=== PATIENT | male | born 1945 | race Caucasian/White ===

== ENCOUNTER → 2017-08-03 | Outpatient (CLI) | payer MEDICARE | END | disposition home or self-care (01) | LOC: LABWHC1 09:33 | PROVIDERS: ATTEND Family Medicine | DX: Z12.11 Encounter for screening for malignant neoplasm of colon (principal) | CPT/HCPCS: 82272 ==

== ENCOUNTER → 2019-05-15 | Outpatient (CLI) | payer MEDICARE ==
[2019-05-15 15:45] LABS: INR 2.5 (<1.2); Prothrombin Time 24.6 sec (9.0-12.0)
== END | disposition home or self-care (01) ==
LOC: LABWHC1 14:44
PROVIDERS: ATTEND Family Medicine
DX: Z86.711 Personal history of pulmonary embolism (principal)
CPT/HCPCS: 36415; 85610

== ENCOUNTER → 2019-06-25 | Outpatient (CLI) | payer MEDICARE ==
[2019-06-25 16:46] LABS: INR 2.4 (<1.2); Prothrombin Time 23.1 sec (9.0-12.0)
== END | disposition home or self-care (01) ==
LOC: LABWHC1 15:10
PROVIDERS: ATTEND Family Medicine
DX: Z51.81 Encounter for therapeutic drug level monitoring (principal); Z79.01 Long term (current) use of anticoagulants
CPT/HCPCS: 36415; 85610

== ENCOUNTER 2021-06-25 08:02 | Day surgery (SDC) | payer MEDICARE ==
[2021-06-24 09:05] VITALS: BMI 30.5
[~2021-06-25 08:02] MED LIST: LACTATED RINGERS 1,000 ML IV SCH
[2021-06-25 08:26] VITALS: TEMP 96.9
[2021-06-25] MEDS ORDERED: LIDOCAINE 1% (10MG/ML) FOR IV START INTRADERMA ONE (08:40)
[2021-06-25] MEDS ORDERED: PROPOFOL 10 MG/ML 20 ML VIAL IV ONE (09:42)
--- NOTE | 2021-06-25 09:45 | P.GSHP ---
History of Present Illness H&P Date: 06/25/21 Chief Complaint: Screening colonoscopy This a 75-year-old male who presents today for screening colonoscopy. Patient denies any GI complaints. Past Medical History Past Medical History: Deep Vein Thrombosis (DVT) Additional Past Medical History / Comment(s): DVT BILAT LOWER LEGS History of Any Multi-Drug Resistant Organisms: None Reported Past Surgical History: No Surgical Hx Reported Additional Past Surgical History / Comment(s): COLONOSCOPY. BILAT CATARACTS REMOVED WITH LENS IMPLANTS Past Anesthesia/Blood Transfusion Reactions: No Reported Reaction Past Psychological History: No Psychological Hx Reported Smoking Status: Never smoker Past Alcohol Use History: Occasional Past Drug Use History: None Reported - Past Family History Brother(s) Family Medical History: Deep Vein Thrombosis (DVT) Medications and Allergies Home Medications Medication Instructions Recorded Confirmed Type Warfarin [Coumadin] 2.5 mg PO DAILY 07/25/16 06/24/21 History Aspirin [Adult Low Dose Aspirin EC] 81 mg PO DAILY 06/24/21 06/24/21 History Allergies Allergy/AdvReac Type Severity Reaction Status Date / Time No Known Allergies Allergy Verified 06/24/21 08:51 Surgical - Exam Vital Signs Temp Pulse Resp BP Pulse Ox 96.9 F L 56 L 20 126/63 96 06/25/21 08:24 06/25/21 08:24 06/25/21 08:24 06/25/21 08:24 06/25/21 08:24 - General well developed, well nourished, no distress - Eyes PERRL - ENT normal pinna - Neck no masses - Respiratory normal expansion - Cardiovascular Rhythm: regular - Abdomen Abdomen: soft, non tender Assessment and Plan Assessment: We'll perform screening colonoscopy.
--- NOTE | 2021-06-25 10:03 | P.OP ---
Date of Procedure: 06/25/21 Preoperative Diagnosis: Screening colonoscopy Postoperative Diagnosis: Diverticulosis Rectal polyp Procedure(s) Performed: Colonoscopy Anesthesia: MAC Surgeon: Mynor Berry Pathology: other (Rectal polyp) Condition: stable Disposition: PACU Description of Procedure: Patient's placed on the endoscopy table in the lateral position he received IV sedation. Digital rectal exam was performed which revealed no abnormalities. Flexible colonoscope was then placed patient anus and passed throughout the e ntire colon. The ileocecal valve was visualized. Cecum, ascending and transverse colon appeared normal. In the descending; was mild diverticular changes. Scope summer back the rectum and a small sessile polyp was seen this removed with the cold forcep. Scope was withdrawn for patient.
[2021-06-25 10:12] VITALS: RESP 16
[2021-06-25 10:23] VITALS: BP 141/72; PULSE 53
== END 2021-06-25 10:50 | disposition home or self-care (01) ==
LOC: ORWHC2ENDO 08:02
PROVIDERS: ATTEND Surgery
DX: Z12.11 Encounter for screening for malignant neoplasm of colon (principal); K57.90 Diverticulosis of intestine, part unspecified, without perforation or abscess without bleeding; K62.1 Rectal polyp; Z79.01 Long term (current) use of anticoagulants; Z79.82 Long term (current) use of aspirin; Z86.718 Personal history of other venous thrombosis and embolism
CPT/HCPCS: 45380; 88305; J2704

== ENCOUNTER → 2024-05-24 | Outpatient (CLI) | payer MEDICARE | END | disposition home or self-care (01) | LOC: LABPRL 08:15 | PROVIDERS: ATTEND Family Medicine | DX: Z00.00 Encounter for general adult medical examination without abnormal findings | CPT/HCPCS: 80053; 80061; 83036; 85025 ==